=== PATIENT | female | born 1945 | race Caucasian/White ===

== ENCOUNTER → 2019-10-24 | Outpatient (CLI) | payer MEDICARE ==
[~2019-10-24] MED LIST: AMLODIPINE BESY10 MG PO; GLYBURIDE-METF1 EACH PO; METFORMIN HCL850 MG PO; PROAIR HFA INH8.5 GM INH
--- NOTE | 2019-10-24 11:00 | Diagnostic Imaging Report ---
Left knee MRI without contrast. History: The pain. Decreased range of motion. Pain not responding to conservative management Comparison: None. Technique: Multiplanar multi-sequence MRI of the knee without contrast. Findings: Medial compartment: Complex tear involving the posterior horn and body segments of the medial meniscus. The medial compartmental articular cartilage surfaces are thinned with regions of fraying and fissuring. Small peripheral marginal osteophytes. The medial collateral ligament complex is intact. Lateral compartment: No meniscal tear or cartilage abnormality. The LCL complex is normal. Intercondylar notch: The ACL and PCL are intact. Patellofemoral compartment: No chondromalacia or patellar dislocation. Extensor mechanism: The quadriceps and patellar tendons are normal. Other findings: There is a joint effusion and synovitis. There is no acute fracture, subluxation or avascular necrosis. Small Mendoza's cyst. IMPRESSION: Complex medial meniscus tear with associated degenerative arthrosis in the medial compartment of the knee. Joint effusion, synovitis and small Mendoza's cyst. Signed by: Dr. Jimmy Chapman M.D. on 10/24/2019 10:57 AM
== END ==
LOC: MRI 09:37
PROVIDERS: ATTEND Family Medicine
DX: M25.562 Pain in left knee (principal)

== ENCOUNTER → 2019-11-02 | Day surgery (SDC) | payer MEDICARE ==
[2019-11-01 09:24] LABS: BASOPHILS # (AUTO) 0.1 (0.0-0.1); BASOPHILS % 0.5 % (0.0-1.0); EOSINOPHILS # (AUTO) 0.8 (0.0-0.4); EOSINOPHILS % 8.1 % (0.0-6.0); HEMATOCRIT 37.8 % (34.2-44.1); LYMPHOCYTES # (AUTO) 2.7 (1.0-3.2); LYMPHOCYTES % 27.4 % (18.0-39.1); MEAN CORPUSCULAR HEMOGLOBIN 30.4 pg (28-32); MEAN CORPUSCULAR HGB CONC 31.7 g/dL (31-35); MEAN CORPUSCULAR VOLUME 95.7 fL (81-99); MONOCYTES # (AUTO) 0.7 (0.2-0.8); MONOCYTES % 6.8 % (4.4-11.3); NEUTROPHILS # (AUTO) 5.6 (2.1-6.9); NEUTROPHILS % 56.8 % (38.7-80.0); PLATELET COUNT 336 x10e3/uL (140-360); RED BLOOD COUNT 3.95 x10e6/uL (3.6-5.1); RED CELL DISTRIBUTION WIDTH 12.9 % (11.7-14.4)
[2019-11-01 09:40] LABS: ANION GAP 17.6 mmol/L (8-16); CALCIUM 9.4 mg/dL (8.4-10.2); CREATININE, SERUM 1.06 mg/dL (0.57-1.11); POTASSIUM 4.6 mmol/L (3.5-5.1)
--- NOTE | 2019-11-01 10:09 | Diagnostic Imaging Report ---
EXAM: CHEST 2 VIEWS DATE: 11/01/2019 9:04 AM INDICATION: Preoperative evaluation COMPARISON: None FINDINGS: The trachea is midline. There are bibasilar opacities suggestive of atelectasis. The lungs are otherwise symmetrically expanded without evidence for large focal consolidation, pneumothorax, or significant pleural effusion. The cardiomediastinal silhouette is within normal limits. Atherosclerotic calcifications are noted within the thoracic aorta. Degenerative changes noted of the visualized spine. No acute osseous abnormality is identified. The surrounding soft tissues are unremarkable. IMPRESSION: No acute cardiopulmonary process identified. Signed by: Dr. Hollis Falcon MD on 11/01/2019 10:05 AM
[~2019-11-02] MED LIST changes: +BUPIVACAINE/EPI 0.5% 30ML SDV-MPF INJ ONE; +CEFAZOLIN SOD 1 GM/NS 50ML 100 ML IV ONE; +FENTANYL CITRATE/PF 100MCG/2 ML INJ ONE; +ONDANSETRON HCL INJ 2MG/ML 2ML 2 MG/ML VIAL ONE; +PHENYLEPHRINE HCL 1% 10 MG/ML VIAL ONE; +PROPOFOL IV EMULSION 10 MG/ML 20 ML VIAL ONE; +SEVOFLURANE INHAL SOLN 250 ML PEN BTL ONE
[2019-11-02 16:08] VITALS: BP 139/65
--- NOTE | 2019-11-03 16:12 | Operative Report ---
DATE OF PROCEDURE: 11/02/2019 SURGEON: Rocky Neumann MD PREOPERATIVE DIAGNOSIS: Left knee medial meniscus tear, left knee degenerative joint disease of the knee. POSTOPERATIVE DIAGNOSIS: Left knee medial meniscus tear, left knee degenerative joint disease of the knee, and an intra-articular loose body. OPERATIONS AND PROCEDURES PERFORMED: The patient underwent a left knee exam under anesthesia, left knee arthroscopy, left knee partial medial meniscectomy, left knee chondroplasty of the patella, the trochlea, the medial femoral condyle, the medial tibial plateau, and the lateral tibial plateau and removal of an intra-articular loose body from the medial compartment. MACHINIST SET UP: ASHLEY Torres. ANESTHESIA: General endotracheal intubation anesthesia. IV FLUIDS: Per the anesthesia record. BRIEF DESCRIPTION OF THE PATIENT'S OPERATIVE PROCEDURE: Ms. Henning was taken to the operating room and placed in the supine position on the operating table. Following induction of general anesthesia as well as endotracheal intubation, the patient's left lower extremity was examined under anesthesia. She was found to have a mild effusion within the knee joint, but otherwise ligamentously stable knee. The patient's lower extremity was prepped and draped in standard surgical fashion. A two-port technique used to provide this patient arthroscopic evaluation of the joint. Examination of suprapatellar pouch, medial and lateral gutters found no evidence of loose bodies. There was, however, chondromalacia of the patellar and trochlear surfaces. The scope was advanced into the medial compartment. Examination of the medial compartment demonstrated a torn medial meniscus. There was also chondromalacia of the articulating surfaces. There was also an intra-articular loose body in the medial compartment. A grasper was used to remove the intra-articular loose body. A combination of upbiting forceps and a motorized shaver used to resect the torn portion of the meniscus. Chondroplasties of the medial femoral condyle and medial tibial plateau performed at this time. Scope then advanced into the intercondylar notch and the anterior cruciate ligament was identified and found to be intact. Scope was advanced into the lateral compartment and chondromalacia of the lateral tibial plateau was encountered. A chondroplasty of the surface was performed. The scope was then placed in suprapatellar pouch and chondroplasties of the patellar and trochlear were performed. The knee was then deflated with sterile normal saline. Each of the portal sites were closed using 4-0 nylon suture. The portal sites as well as knee itself injected with 0.5% Marcaine with epinephrine. Sterile dressings were applied. The patient was awakened and taken to postanesthesia care unit in stable condition. MD ROSANNE Laura/AKANKSHA /[id number]
--- OUTSIDE RECORDS SUMMARY | 2019-11-04 13:56 | XMS REPORT ---
Author Author [facility] Address Unknown Phone Unavailable Care Team Providers Care Franchise Consultant Name Role Phone JORGE L CHAVIS Unavailable Unavailable SUDHIR HAYES Unavailable Unavailable Problems This patient has no known problems. Allergies, Adverse Reactions, Alerts This patient has no known allergies or adverse reactions. Medications This patient has no known medications. Results Test Description Test Time Test Comments Text Results Atomic Results Result Comments CHEST 2 VIEWS 2019-11-01 10:05:00 [facility] [address] [place] [address] Patient Name: THADDEUS CRUZ MR #: [id number] : 1945 Age/Sex: 74/F Req #: [id number] Adm Physician: Ordered by: JORGE L CHAVIS MD Report #: [id number] Location: OR Room/Bed: Procedure: [id number] DX/CHEST 2 VIEWS Exam Date: 11/01/19 Exam Time: 929 REPORT STATUS: Signed EXAM: CHEST 2 VIEWS DATE: 11/01/2019 9:04 AM IND ICATION: Preoperative evaluation COMPARISON: None FINDINGS: The trachea is midline. There are bibasilar opacities suggestive of atelectasis. The lungs are otherwise symmetrically expanded without evidence for large focal consolidation, pneumothorax, or significant pleural effusion. The cardiomediastinal silhouette is within normal limits. Atherosclerotic calcifications are noted within the thoracic aorta. Degenerative changes noted of the visualized spine. No acute osseous abnormality is identified. The surrounding soft tissues are unremarkable. IMPRESSION: No acute cardiopulmonary process identified. Signed by: Dr. Hollis Falcon MD on 11/01/2019 10:05 AM Dictated By: HOLLSI FALCON MD 1005 Transcribed By: YECENIA on 11/01/19 1005 COPY TO: JORGE L CHAVIS MD MRI KNEE LEFT WO 2019-10-24 10:53:00 [facility] [address] [place] [address] Patient Name: HTADDEUS CRUZ MR #: [id number] : 1945 Age/Sex: 74/F Req #: [id number] Adm Physician: Ordered by: SUDHIR HAYES DO Report #: [id number] Location: MRI Room/Bed: Procedure: [id number] MRI/MRI KNEE LEFT WO Exam Date: Exam Time: REPORT STATUS: Signed Left knee MRI without contrast. History: The pain. Decreased range of motion. Pain not responding to conservative management Comparison: None. Technique: Multiplanar multi-sequence MRI of the knee without contrast. Findings: Medial compartment: Complex tear involving the posterior horn and body segments of the medial meniscus. The medial compartmental articular cartilage surfaces are thinned with regions of fraying and fissuring. Small peripheral marginal osteophytes. The medial collateral ligament complex is intact. Lateral compartment: No meniscal tear or cartilage abnormality. The LCL complex is normal. Intercondylar notch: The ACL and PCL are intact. Patellofemoral compartment: No chondromalacia or patellar dislocation. Extensor mechanism: The quadriceps and patellar tendons are normal. Other findings: There is a joint effusion and synovitis. There is no acute fracture, subluxation or avascular necrosis. Small Mendoza's cyst. IMPRESSION: Complex medial meniscus tear with associated degenerative arthrosis in the medial compartment of the knee. Joint effusion, synovitis and small Mendoza's cyst. Signed by: Dr. Jimmy Chapman M.D. on 10/24/2019 10:57 AM Dictated By: JIMMY CHAPMAN MD, MD 1054 Transcribed By: YECENIA on 10/24/19 1056 COPY TO: SUDHIR HAYES DO
== END | disposition home or self-care (01) ==
LOC: OR 12:14
PROVIDERS: ATTEND Specialist
DX: S83.222A Peripheral tear of medial meniscus, current injury, left knee, initial encounter (principal); M17.12 Unilateral primary osteoarthritis, left knee; M71.22 Synovial cyst of popliteal space [Baker], left knee; Z88.7 Allergy status to serum and vaccine; J45.909 Unspecified asthma, uncomplicated; Z85.41 Personal history of malignant neoplasm of cervix uteri; E11.9 Type 2 diabetes mellitus without complications; I10 Essential (primary) hypertension; Z87.442 Personal history of urinary calculi; Z83.3 Family history of diabetes mellitus; Z82.49 Family history of ischemic heart disease and other diseases of the circulatory system; M23.42 Loose body in knee, left knee; Z01.810 Encounter for preprocedural cardiovascular examination; Z01.812 Encounter for preprocedural laboratory examination; Z01.811 Encounter for preprocedural respiratory examination; Z79.84 Long term (current) use of oral hypoglycemic drugs
CPT/HCPCS: 29881; 36415 ×2; 71046; 80048; 82948; 85025; 93005; J0690; J2370; J2405; J2704; J3010

== ENCOUNTER 2020-04-11 09:50 | Emergency (ER) | payer MEDICARE ==
[~2020-04-11] VITALS: Ht 160 cm; Wt 72.6 kg
[~2020-04-11 09:50] MED LIST changes: -BUPIVACAINE/EPI 0.5% 30ML SDV-MPF INJ ONE; -CEFAZOLIN SOD 1 GM/NS 50ML 100 ML IV ONE; -FENTANYL CITRATE/PF 100MCG/2 ML INJ ONE; -ONDANSETRON HCL INJ 2MG/ML 2ML 2 MG/ML VIAL ONE; -PHENYLEPHRINE HCL 1% 10 MG/ML VIAL ONE; -PROPOFOL IV EMULSION 10 MG/ML 20 ML VIAL ONE; -SEVOFLURANE INHAL SOLN 250 ML PEN BTL ONE
--- OUTSIDE RECORDS SUMMARY | 2020-04-11 09:53 | XMS REPORT ---
Author Author [facility] Organization [facility] Address [address] [place] [address] Phone Unavailable Care Team Providers Care Trading Floor Operator Name Role Phone JORGE L CHAVIS Attrafiqs Unavailable SUDHIR HAYES Atttracy Unavailable Problems This patient has no known problems. Allergies, Adverse Reactions, Alerts This patient has no known allergies or adverse reactions. Medications This patient has no known medications. Procedures This patient has no known procedures. Results Test Description Test Time Test Comments Results Result Comments Source CHEST 2 VIEWS 2019-11-01 10:05:00 [facility] [address] [address] Patient Name: THADDEUS CRUZ MR #: [id number] : 1945 Age/Sex: 74/F Req #: [id number] Adm Physician: Ordered by: JORGE L CHAVIS MD Report #: [id number] Location: OR Room/Bed: Procedure: [id number] DX/CHEST 2 VIEWS Exam Date: 11/01/19 Exam Time: 929 REPORT STATUS: Signed EXAM: CHEST 2 VIEWS DATE: 11/01/2019 9:04 AM INDICATION: Preoperative evaluation COMPARISON: None FINDINGS: The trachea is midline. There are bibasilar opacities suggestive of atelectasis. The lungs are otherwise symmetrically expanded w ithout evidence for large focal consolidation, pneumothorax, or significant pleural effusion. The cardiomediastinal silhouette is within normal limits. Atherosclerotic calcifications are noted within the thoracic aorta. Degenerative changes noted of the visualized spine. No acute osseous abnormality is identified. The surrounding soft tissues are unremarkable. IMPRESSION: No acute cardiopulmonary process identified. Signed by: Dr. Hollis Falcon MD on 11/01/2019 10:05 AM Dictated By: HOLLIS FALCON MD 1005 Transcribed By: YECENIA on 11/01/19 1005 COPY TO: JORGE L CHAVIS MD MRI KNEE LEFT WO 2019-10-24 10:53:00 [place] [address] Patient Name: THADDEUS CRUZ MR #: [id number] : 1945 Age/Sex: 74/F Req #: [id number] Adm Physician: Ordered by: SUDHIR HAYES DO Report #: [id number] Location: MRI Room/Bed: Procedure: [id number] MRI/MRI KNEE LEFT WO Exam Date: Exam [...] AM Dictated By: JIMMY CHAPMAN MD, MD 105 Transcribed By: YECEINA on 10/24/191056 COPY TO: SUDHIR HAYES DO
[2020-04-11] MEDS ORDERED: METHYLPREDNISOLONE SOD SUCC 125 MG/2ML VIAL IM STA (10:13)
[2020-04-11] MEDS ORDERED: ALBUTEROL/IPRATROPIUM 3 ML NEB NEB STA ×2 (10:13→12:38)
[2020-04-11] MEDS ORDERED: CEFTRIAXONE SOD 1 GM VIAL IM STA (12:38)
--- NOTE | 2020-04-11 12:41 | Emergency Department Note ---
History of Present Illnes History of Present Illness Chief Complaint: sob/cough History of Present Illness This is a 74 year old female. was doing well until 01/05 then seasonal allergy symptoms(runny nose, congestion) then productive cough, wheezing , shortness of breath which worsen 5 days ago. Historian: Patient Arrival Mode: Car History limited by: condition of the patient (normal) Onset (how long ago): day(s) (5) Location: n/a Quality: moderate Radiation: non-radiation Severity: moderate Onset quality: gradual Duration (how long): day(s) (5) Timing of current episode: constant Progression: worsening Chronicity: recurrent (same as asthma attack) Relieving factors: rest Exacerbating factors: movement Associated symptoms: shortness of breath, other Treatments prior to arrival: none Past Medical/Family History Physician Review I have reviewed the patient's past medical and family history. Any updates have been documented here. Past Medical History Recent Fever: No Clinical Suspicion of Infectio: No New/Unexplained Change in Ment: No Past Medical History: Hypertension, Diabetes, Asthma Other Medical History: cervical ca Past Surgical History: Appendectomy, Hysterectomy Other Surgery: cervical ca Social History Smoking Cessation: Never Smoker Counseling Performed: Yes Alcohol Use: None Any Illegal Drug Use: No TB Exposure/Symptoms: No Physically hurt or threatened: No Other Last Tetanus: ood Any Pre-Existing Lines (PICC,: No Is patient up to date on immun: Yes Last Flu: 2019 Last Pneumovax: unknown Review of Systems Review of Systems Constitutional: no symptoms EENTM: no symptoms Cardiovascular: no symptoms Respiratory: as per HPI, cough, dyspnea, wheezing Gastrointestinal: as per HPI, diarrhea Genitourinary: no symptoms Musculoskeletal: no symptoms Neurological: no symptoms Psychological: no symptoms Endocrine: no symptoms Hematological/Lymphatic: no symptoms Review of other systems All other systems reviewed and negative. Physical Exam Related Data Allergies: Coded Allergies: Tetanus Vaccines and Toxoid (Verified Allergy, Severe, SYNCOPE, 11/01/19) Triage Vital Signs Vital Signs Date Time Temp Pulse Resp B/P (MAP) Pulse Ox O2 Delivery O2 Flow Rate FiO2 04/11/20 09:56 97.7 93 20 162/77 97 Vital signs reviewed: Yes Physical Exam CONSTITUTIONAL Constitutional: well-developed HENT HENT: normocephalic, atraumatic, oropharynx clear/moist, nose normal HENT L/R: left ext ear normal, right ext ear normal EYES Eyes: PERRL, conjunctivae normal NECK Neck: ROM normal PULMONARY Pulmonary: effort normal, other (+forced expiratory wheezes) CARDIOVASCULAR Cardiovascular: regular rhythm, heart sounds normal, capillary refill normal, normal rate GASTROINTESTINAL Abdominal: soft, nontender, bowel sounds normal GENITOURINARY Genitourinary: exam deferred SKIN Skin: warm, dry MUSCULOSKELETAL Musculoskeletal: ROM normal NEUROLOGICAL Neurological: alert, oriented x 3, no gross motor or sensory deficits PSYCHOLOGICAL Psychological: mood/affect normal, judgement normal Results Imaging Imaging results reviewed: Yes (cxr=wnl) Critical Care Time Subsequent provider I assumed direction of critical care for this patient from another provider of my specialty. Assessment & Plan Reassessment Reassessment pt feels 95% better s/p nebs Assessment & Plan Final Impression: (1) Asthma exacerbation (2) Acute bronchitis Assessment & Plan rx for nebs, inhaler, prednisone and omnicef Depart Disposition: HOME, SELF-CARE Last Vital Signs Date Time Temp Pulse Resp B/P (MAP) Pulse Ox O2 Delivery O2 Flow Rate FiO2 04/11/20 11:38 103 22 122/60 95 04/11/20 09:56 97.7 Home Meds Active Scripts Cefdinir (OMNICEF) 300 Mg Capsule, 300 MG PO Q12H for 10 Days, #20 CAP Prov:SHAWNA SILVA 04/11/20 Prednisone (PREDNISONE) 20 Mg Tab, 60 MG PO DAILY for 6 Days, #18 TAB take all 3 pills at once (START IMMEDIATELY) TAKE ONLY IF BLOOD SUGAR IS LESS THAN 150 Prov:SHAWNA SILVA 04/11/20 Albuterol Sulf* (PROAIR HFA INHALER*) 8.5 Gm Inh, 2 INH INH Q4HR PRN for SHORTNESS OF BREATH for 14 Days, #1 INH dispense with spacer Prov:SHAWNA SILVA 04/11/20 Albuterol Sulfate (ALBUTEROL SULFATE) 2.5 Mg/3 Ml Vial.neb, 5 MG PO Q4HR PRN for SHORTNESS OF BREATH for 14 Days, #60 UNITS 1 Refill Prov:SHAWNA SILVA 04/11/20 Reported Medications Albuterol Sulf* (PROAIR HFA INHALER*) 8.5 Gm Inh, 2 PUMP INH PRN PRN for WHEEZING 12/17/19 Glyburide/Metformin Hcl (GLYBURIDE-METFORMIN 2.5-500 MG) 1 Each Tablet, 1 TAB PO BID 11/01/19 Metformin Hcl (METFORMIN HCL) 850 Mg Tablet, 1000 MG PO BID, #30 TAB 11/01/19 Amlodipine Besylate (AMLODIPINE BESYLATE) 10 Mg Tablet, 10 MG PO DAILY, #30 TAB 11/01/19 Medications in the ED Albuterol/ Ipratropium 9 ml ONCE STAT NEB Last administered on 04/11/20at 10:35; Admin Dose 9 ML; Start 04/11/20 at 10:13; Stop 04/11/20 at 10:21; Status DC Methylprednisolone Sodium Succinate 125 mg ONCE STAT IM Last administered on 04/11/20at 10:26; Admin Dose 125 MG; Start 04/11/20 at 10:13; Stop 04/11/20 at 10:19; Status DC SHAWNA SILVA April 11, 2020 12:41
--- NOTE | 2020-04-11 12:41 | Diagnostic Imaging Report ---
EXAMINATION: CHEST 2 VIEWS INDICATION: Cough COMPARISON: Chest radiograph of 11/01/2019 FINDINGS: LINES/TUBES:None LUNGS:The lungs are well-inflated. No focal consolidation or pulmonary edema. PLEURA:No pleural effusion or pneumothorax. MEDIASTINUM:The cardiomediastinal silhouette appears normal in size and shape. Atherosclerotic calcifications of the thoracic aorta. BONES/SOFT TISSUES:No acute osseous injury. ABDOMEN:No free air under the diaphragm. IMPRESSION: No focal pneumonia or pulmonary edema. Signed by: Arnie Foster MD on 04/11/2020 12:38 PM
[2020-04-11] MEDS ORDERED: CEFDINIR300 MG PO (12:51)
[2020-04-11] MEDS ORDERED: PREDNISONE20 MG PO (12:51)
[2020-04-11] MEDS ORDERED: ALBUTEROL2.5 MG/3 M PO (12:51)
[2020-04-11] MEDS ORDERED: PROAIR HFA INH8.5 GM INH (12:51)
[2020-04-11] MEDS ORDERED: LIDOCAINE HCL 1% 2 ML AMP ONE (13:14)
[2020-04-11 13:32] VITALS: BP 134/88
== END 2020-04-11 14:05 | disposition home or self-care (01) ==
LOC: ER 09:50
DX: R05 Cough (principal); J45.901 Unspecified asthma with (acute) exacerbation; J20.9 Acute bronchitis, unspecified; I10 Essential (primary) hypertension; E11.9 Type 2 diabetes mellitus without complications; Z85.41 Personal history of malignant neoplasm of cervix uteri
CPT/HCPCS: 71046; 93005; 94640 ×2; 99283; J0696; J2001; J2930